=== PATIENT | male | born 1990 | race Caucasian/White ===

== ENCOUNTER 2016-12-16 23:05 | Emergency (ER) | payer MEDICAID ==
[2016-12-16 23:11] VITALS: RESP 16; TEMP 98.2
--- NOTE | 2016-12-16 23:15 | EDPHY ---
H & P Stated Complaint: multiple complaints/Menjivar, dizzy, congested, "low blood count last year" HPI/ROS: HPI CHIEF COMPLAINT: Headache, lightheadedness "I think I am having a Migraine" HISTORY OF PRESENT ILLNESS: This patient very pleasant 18-year-old male, significant past medical history for migraine headaches. Patient presents to the emergency room by private vehicle as he drove here. He states around 10:00 p.m. was going to lay down to go to sleep felt lightheaded and an sudden in onset increase in pressure in his head. He then developed a bitemporal headache. Sudden in onset, atypical from previous headaches. Denies double vision, does endorse nausea. No ringing in his ears. No focal weakness numbness or tingling. No neck pain. He tells me he has a history of migraines that are somewhat different from this and has not had one in a while. He states prior to arrival he took a few ibuprofen is feeling much better he tells me his current headache is 1/10. Denies chest pain or shortness of breath. Denies room spinning sensation. Patient tells me approximately a year ago this primary care doctor was noted that his white count is slightly low and his platelets were at 126,000 was told fever developed a headache that he should be evaluated given that he has thrombocytopenia. Decided come into the emergency room tonight to get his CBC drawn he is requesting to check a CBC and platelet count. Patient also tells me that he has been vigorously working out as he has a history lumbar fusion and has been recovering from this. Tells me he has been swimming extensively sometimes doing to work outs per day. He did work out this morning and felt fine. He states he may be dehydrated contributing to his lightheadedness. Past Medical History: Migraine headaches Past Surgical History: L5-S1 lumbar fusion Social History: Smokes tobacco daily, denies alcohol or drugs Family History: noncontributory ROS REVIEW OF SYSTEMS: A comprehensive 10 point review of systems is otherwise negative aside from elements mentioned in the history of present illness. Exam Constitutional Appears well, Non toxic, no meningeal, triage nursing summary reviewed, vital signs reviewed, awake/alert. Eyes normal conjunctivae and sclera, EOMI, PERRLA. HENT normal inspection, atraumatic, moist mucus membranes, no epistaxis, neck supple/ no meningismus, no raccoon eyes. Respiratory clear to auscultation bilaterally, normal breath sounds, no respiratory distress, no wheezing. Cardiovascular rate normal, regular rhythm, no murmur, no edema, distal pulses normal. Gastrointestinal soft, non-tender, no rebound, no guarding, normal bowel sounds, no distension, no pulsatile mass. Genitourinary no CVA tenderness. Musculoskeletal no midline vertebral tenderness, full range of motion, no calf swelling, no tenderness of extremities, no meningismus, good pulses, neurovascularly intact. Skin pink, warm, & dry, no rash, skin atraumatic. Neurologic Neck supple, awake, alert and oriented x 3, AAOx3, moves all 4 extremities equally, motor intact, sensory intact, CN II-XII intact, normal cerebellar, normal vision, normal speech. Psychiatric normal mood/affect. Heme/Lymph/Immune no lymphadenopathy. Differential Diagnosis: Includes but is not limited to in a particular order migraine headache, tension headache, subarachnoid bleed, aneurysmal bleed, dehydration, rhabdo Medical Decision Making: This patient had an IV established will check basic blood work including CBC, BMP, CK, be hydrated gently with normal saline, this time he appears well nontoxic his neurological exam is unremarkable, may need to perform LP or spinal tap to rule out subarachnoid hemorrhage if CT scan is negative as patient quickly presented to the emergency room after sudden onset of pressure type headache with bitemporal pain. Not thunderclap. He is agree for imaging of his head and CT scan without contrast. Current headache is 1/ 10. will monitor him closely at this time he appears well he has no meningeal signs. Re-evaluation: CT scan of the head without IV contrast. The results of the study are negative for acute abnormality specifically no evidence of bleed. The study was read by Dr. Peraza I viewed the images myself on the PACS system. 1236: Patient is resting comfortably here, I did discuss at length about sudden-onset headache rushing pressure sensation and that to fully rule out a subarachnoid bleed recommend lumbar puncture. The patient is agreeable with this plan it is noted his neurological exam is unremarkable here his CT scan of his head does not show anything acute. After great discussion with the patient and going over the risk versus benefit of lumbar puncture the patient has agreed to this procedure. He does understand that the procedures not done without risk including bleeding, worsening headache, infection, nerve injury or spinal tap post headache need for blood patch. I did explain obviously do everything to mitigate these risks the procedures done sterilely he understands. 1238: blood work has been reviewed. Platelets are 135,000. He is not on any anticoagulation. His platelet count is higher than his previous platelet count his CBC white count is higher than his previous CBC. Here in the emergency room he appears well nontoxic no fever no meningeal signs. Unlikely to have subarachnoid bleed, however given rushing and pressure sensation of his head and headache that is somewhat atypical from his previous migraines he is agree for spinal tap to rule out bleed. 1250: Procedure: Lumbar puncture. Indication: Headache, rule out subarachnoid After verbal informed consent and written consent from patient explaining the risks including infection, bleeding, and neurologic damage, worsening headache, post lp headache, Worsening heading and need for Blood Patch, a lumbar puncture was performed after the patient was prepped and draped in the usual fashion. The back was anesthetized with 1% lidocaine. Approximately 4 cc of clear fluid was obtained. Opening pressure was not obtained. There were no complications. The procedure was performed by myself. 0140: patient is resting comfortably at this time lying flat. No worsening headache. Does not have any back pain. Neurological exam remains unremarkable. CSF studies have been reviewed this time initial red blood cell count was 20 however on tube 4 cleared to 0, 0 whites 0 reds. No indication this patient is having meningitis or subarachnoid bleed 0311: patient ambulated well throughout the emergency room he remained stable nontoxic-appearing unremarkable neurological exam is headache is resolved. His CT scan and CSF studies have been reviewed. I did give him strict return precautions he understands return emergency room if develops worsening headache , fever, vomiting has severe low back pain. He understands this. Source: Patient - Personal History Current Tetanus/Diphtheria Vaccine: Yes Current Tetanus Diphtheria and Acellular Pertussis (TDAP): Yes - Medical/Surgical History Hx Asthma: No Hx Chronic Respiratory Disease: No Hx Diabetes: No Hx Cardiac Disease: No Hx Renal Disease: No Hx Cirrhosis: No Hx Alcoholism: No Hx HIV/AIDS: No Hx Splenectomy or Spleen Trauma: No Other PMH: L1-S5 fusion - Social History Smoking Status: Current every day smoker Constitutional: Initial Vital Signs Temperature (C) 36.8 C 12/16/16 23:09 Heart Rate 97 12/16/16 23:09 Respiratory Rate 16 12/16/16 23:09 Blood Pressure 135/72 H 12/16/16 23:09 O2 Sat (%) 95 12/16/16 23:09 O2 Delivery Mode Room Air Allergies/Adverse Reactions: No Known Allergies Allergy (Unverified 12/16/16 23:08) Home Medications: Medication Instructions Recorded KLONOPIN 12/16/16 Medical Decision Making - Data Points Laboratory Results: Laboratory Results 12/16/16 23:35 12/16/16 23:35 12/17/16 12/17/16 12/17/16 01:00 01:00 01:00 WBC RBC Hgb Hct MCV MCH MCHC RDW Plt Count MPV Neut % (Auto) Lymph % (Auto) [place] % (Auto) Eos % (Auto) Baso % (Auto) Nucleat RBC Rel Count Absolute Neuts (auto) Absolute Lymphs (auto) Absolute Monos (auto) Absolute Eos (auto) Absolute Basos (auto) Absolute Nucleated RBC Immature Gran % Immature Gran # Sodium Potassium Chloride Carbon Dioxide Anion Gap BUN Creatinine Estimated GFR Glucose Calcium Creatine Kinase CK-MB (CK-2) Fraction CK-MB (CK-2) % Creatine Kinase Interp CSF Tube Number 4 1 CSF Appearance CLEAR CLEAR (CLEAR) (CLEAR) CSF Color COLORLESS COLORLESS (COLORLESS) (COLORLESS) CSF Supernatant COLORLESS COLORLESS (COLORLESS) (COLORLESS) CSF WBC 0 /mm3 /mm3 0 /mm3 /mm3 (0-5) (0-5) CSF RBC 0 /mm3 /mm3 20 /mm3 H /mm3 (0-0) (0-0) CSF Glucose 57 mg/dL mg/dL (50-75) CSF Total Protein 35 mg/dL mg/dL (12-60) HSV Source Description Pending HSV I DNA PCR Pending HSV II DNA PCR Pending 12/16/16 12/16/16 23:35 23:35 WBC 7.98 10^3/uL 10^3/uL (3.80-9.50) RBC 4.98 10^6/uL 10^6/uL (4.40-6.38) Hgb 15.7 g/dL g/dL (13.7-17.5) Hct 46.2 % % (40.0-51.0) MCV 92.8 fL fL (81.5-99.8) MCH 31.5 pg pg (27.9-34.1) MCHC 34.0 g/dL g/dL (32.4-36.7) RDW 12.5 % % (11.5-15.2) Plt Count 135 10^3/uL L 10^3/uL (150-400) MPV 10.9 fL fL (8.7-11.7) Neut % (Auto) 61.6 % % (39.3-74.2) Lymph % (Auto) 25.3 % % (15.0-45.0) [place] % (Auto) 10.4 % % (4.5-13.0) Eos % (Auto) 2.1 % % (0.6-7.6) Baso % (Auto) 0.5 % % (0.3-1.7) Nucleat RBC Rel Count 0.0 % % (0.0-0.2) Absolute Neuts (auto) 4.91 10^3/uL 10^3/uL (1.70-6.50) Absolute Lymphs (auto) 2.02 10^3/uL 10^3/uL (1.00-3.00) Absolute Monos (auto) 0.83 10^3/uL H 10^3/uL (0.30-0.80) Absolute Eos (auto) 0.17 10^3/uL 10^3/uL (0.03-0.40) Absolute Basos (auto) 0.04 10^3/uL 10^3/uL (0.02-0.10) Absolute Nucleated RBC 0.00 10^3/uL 10^3/uL (0-0.01) Immature Gran % 0.1 % % (0.0-1.1) Immature Gran # 0.01 10^3/uL 10^3/uL (0.00-0.10) Sodium 141 mEq/L mEq/L (134-144) Potassium 4.0 mEq/L mEq/L (3.5-5.2) Chloride 104 mEq/L mEq/L (97-110) Carbon Dioxide 27 mEq/l mEq/l (22-31) Anion Gap 10 mEq/L mEq/L (8-16) BUN 21 mg/dL mg/dL (7-23) Creatinine 0.9 mg/dL mg/dL (0.7-1.3) Estimated GFR > 60 Glucose 96 mg/dL mg/dL (70-100) Calcium 9.5 mg/dL mg/dL (8.5-10.4) Creatine Kinase 310 IU/L H IU/L (0-224) CK-MB (CK-2) Fraction 1.82 ng/mL ng/mL (0-3.19) CK-MB (CK-2) % 0.6 % % (0.0-4.0) Creatine Kinase Interp NEGATIVE (NEGATIVE) CSF Tube Number CSF Appearance CSF Color CSF Supernatant CSF WBC CSF RBC CSF Glucose CSF Total Protein HSV Source Description HSV I DNA PCR HSV II DNA PCR Microbiology Results: MICROBIOLOGY 12/17/16 01:00 Cerebral Spinal Fluid Gram Stain - Final Medications Given: Discontinued Medications Acetaminophen (Tylenol) 1,000 mg PO EDNOW ONE Stop: 12/17/16 02:04 Last Admin: 12/17/16 02:09 Dose: 1,000 mg Sodium Chloride (Ns) 1,000 mls @ 0 mls/hr IV ONCE ONE PRN Reason: Wide Open Stop: 12/16/16 23:23 Last Admin: 12/16/16 23:38 Dose: 1,000 mls Sodium Chloride (Ns) 1,000 mls @ 0 mls/hr IV ONCE ONE PRN Reason: Wide Open Stop: 12/17/16 01:10 Last Admin: 12/17/16 01:00 Dose: 1,000 mls Departure - Departure Disposition: Home, Routine, Self-Care Clinical Impression: Headache Qualifiers: Headache type: unspecified Headache chronicity pattern: acute headache Intractability: not intractable Qualified Code(s): R51 - Headache Condition: Good Instructions: Acute Headache (ED) Additional Instructions: 1. Drink lots of fluids stay well-hydrated 2. return emergency room if you have worsening headache, fever, vomiting or any questions or concerns 3. Stay in a low stimulus environment for the next 24 hours no loud noises or bright lights. Referrals: FINE,CORNELIO [Other] - As per Instructions
[2016-12-16] MEDS ORDERED: NS 1,000 ML IV ONE (23:22)
[2016-12-16 23:42] LABS: % IMMATURE GRANULYOCYTES 0.1 % (0.0-1.1); ABSOLUTE IMMATURE GRANULOCYTES 0.01 10^3/uL (0.00-0.10); ADD DIFF? NO; ADD MORPH? NO; ADD SCAN? NO; ATYPICAL LYMPHOCYTE FLAG 10 (0-99); FRAGMENT RBC FLAG 0 (0-99); HEMATOCRIT 46.2 % (40.0-51.0); HEMOGLOBIN 15.7 g/dL (13.7-17.5); LEFT SHIFT FLG 0 (0-99); LIPEMIA HEMOLYSIS FLAG 90 (0-99); MEAN CELL HEMOGLOBIN 31.5 pg (27.9-34.1); MEAN CELL VOLUME 92.8 fL (81.5-99.8); MEAN PLATELET VOLUME 10.9 fL (8.7-11.7); PLATELET CLUMPS FLAG 10 (0-99); PLATELET COUNT 135 10^3/uL (150-400); RED BLOOD CELL COUNT 4.98 10^6/uL (4.40-6.38); RED CELL DISTRIBUTION WIDTH 12.5 % (11.5-15.2)
[2016-12-16 23:52] LABS: ANION GAP 10 mEq/L (8-16); CALCIUM 9.5 mg/dL (8.5-10.4); CARBON DIOXIDE 27 mEq/l (22-31); CHLORIDE 104 mEq/L (97-110); CREATININE 0.9 mg/dL (0.7-1.3); GLOMERULAR FILTRATION RATE > 60; GLUCOSE 96 mg/dL (70-100); SODIUM 141 mEq/L (134-144)
[2016-12-17 00:24] LABS: CK-MB INTERPRETATION NEGATIVE (NEGATIVE); CREATINE KINASE-MB FRACTION 1.82 ng/mL (0-3.19)
[2016-12-17] MEDS ORDERED: NS 1,000 ML IV ONE (01:09)
[2016-12-17 01:20] LABS: PROTEIN, CSF 35 mg/dL (12-60)
[2016-12-17 01:34] LABS: CSF APPEARANCE CLEAR (CLEAR); CSF COLOR COLORLESS (COLORLESS); CSF SUPERNATANT COLORLESS (COLORLESS); WBC, CSF 0 /mm3 (0-5)
[2016-12-17] MEDS ORDERED: ACETAMINOPHEN 500 MG TAB PO ONE (02:03)
[2016-12-17 03:31] VITALS: BP 103/60; PULSE 79; O2SAT 97
[2016-12-19 07:38] LABS: MISCELLANEOUS TEST See Comments
== END 2016-12-17 03:31 | disposition home or self-care (01) ==
PROC: 009U3ZX Drainage of Spinal Canal, Percutaneous Approach, Diagnostic (ICD-10-PCS; principal; 2016-12-16)
DX: R51 Headache (principal); F17.200 Nicotine dependence, unspecified, uncomplicated; Z98.1 Arthrodesis status
CPT/HCPCS: 87529-90

== ENCOUNTER 2016-12-18 16:16 | Emergency (ER) | payer MEDICAID ==
[2016-12-18 16:22] VITALS: RESP 16
--- NOTE | 2016-12-18 16:32 | EDPHY ---
H & P Time Seen by Provider: 12/18/16 16:32 HPI/ROS: CHIEF COMPLAINT: Headache HISTORY OF PRESENT ILLNESS: Patient was seen in the emergency department on by Dr. Zurita for headache and being lightheaded. He had a negative workup including head CT and lumbar puncture and felt better for 24 hours but then today while working had recurrent left-sided headache at 2:00 p.m. This was associated with feeling lightheaded disoriented with a bloody nose on the right. He also had slurred speech and felt like he" lost touch" and had numbness in his right hand. Symptoms lasted a hour and half for 2 hours and now or better except he still has a left-sided headache. Does not radiate. Not associated with neck pain. REVIEW OF SYSTEMS: Eye: no change in vision ENT: no sore throat Cardiac: no chest pain or syncope Pulmonary: no cough or SOB Abdomen: no vomiting, diarrhea, abdominal pain Musculoskeletal: no back pain Skin: no rash Neuro: HPI Constitutional: no fever : no urinary symptoms A comprehensive 10 point review of systems is otherwise negative aside from elements mentioned in the history of present illness. PAST MEDICAL HISTORY: Migraine headaches and L5-S1 lumbar fusion Social history: Tobacco smoker, no family history of venous thromboembolism or intracranial aneurysm. General Appearance: Alert and conversant, cooperative. Eyes: No scleral icterus. Extraocular motion intact. ENT, Mouth: Normal mucous membranes. Normal tympanic membranes and no trismus and pharynx appears normal. Respiratory: Normal respiratory effort, breath sounds equal, lungs are clear to auscultation. Cardiovascular: Regular rate and rhythm. Gastrointestinal: Abdomen is soft and non tender. Neurological: Alert and oriented x3. Normally conversant. Face symmetric, normal movement and sensation in all extremities. Normal [id number] bilaterally and no pronator drift. Skin: Warm and dry, no rashes. Musculoskeletal: No peripheral edema and no joint swelling. Normal range of motion of his neck. Psychiatric: Not agitated. Emergency Department course/MDM: Patient does not have a positional component to his headache. He is able the sit up and stand and in fact chooses to be sitting during the interview. I think that lumbar puncture related headache is unlikely. Plan for MRI brain and neck angiography, with stroke symptoms, treatment for migraine with Toradol dexamethasone and Reglan. 1920: CT angiography normal per Dr. Sibley. Patient examined and feels back to normal and his headache is resolved. Think this is likely migraine headache and unlikely to be stroke or dissection. Smoking Status: Current every day smoker Constitutional: Initial Vital Signs Temperature (C) 36.9 C 12/18/16 16:20 Heart Rate 75 12/18/16 16:20 Respiratory Rate 16 12/18/16 16:20 Blood Pressure 144/90 H 12/18/16 16:20 O2 Sat (%) 98 12/18/16 16:20 O2 Delivery Mode Room Air Allergies/Adverse Reactions: No Known Allergies Allergy (Unverified 12/16/16 23:08) Home Medications: Medication Instructions Recorded KLONOPIN 12/16/16 Medical Decision Making - Diagnostics Imaging: MRI brain negative per Aquilino at 6:13 p.m.. - Data Points Laboratory Results: Laboratory Results 12/18/16 16:50 12/18/16 16:50 12/18/16 12/18/16 16:50 16:50 WBC 7.93 10^3/uL 10^3/uL (3.80-9.50) RBC 5.03 10^6/uL 10^6/uL (4.40-6.38) Hgb 16.0 g/dL g/dL (13.7-17.5) Hct 46.0 % % (40.0-51.0) MCV 91.5 fL fL (81.5-99.8) MCH 31.8 pg pg (27.9-34.1) MCHC 34.8 g/dL g/dL (32.4-36.7) RDW 12.3 % % (11.5-15.2) Plt Count 136 10^3/uL L 10^3/uL (150-400) MPV 10.8 fL fL (8.7-11.7) Neut % (Auto) 63.3 % % (39.3-74.2) Lymph % (Auto) 23.8 % % (15.0-45.0) [place] % (Auto) 10.1 % % (4.5-13.0) Eos % (Auto) 2.0 % % (0.6-7.6) Baso % (Auto) 0.5 % % (0.3-1.7) Nucleat RBC Rel Count 0.0 % % (0.0-0.2) Absolute Neuts (auto) 5.02 10^3/uL 10^3/uL (1.70-6.50) Absolute Lymphs (auto) 1.89 10^3/uL 10^3/uL (1.00-3.00) Absolute Monos (auto) 0.80 10^3/uL 10^3/uL (0.30-0.80) Absolute Eos (auto) 0.16 10^3/uL 10^3/uL (0.03-0.40) Absolute Basos (auto) 0.04 10^3/uL 10^3/uL (0.02-0.10) Absolute Nucleated RBC 0.00 10^3/uL 10^3/uL (0-0.01) Immature Gran % 0.3 % % (0.0-1.1) Immature Gran # 0.02 10^3/uL 10^3/uL (0.00-0.10) Sodium 140 mEq/L mEq/L (134-144) Potassium 4.2 mEq/L mEq/L (3.5-5.2) Chloride 103 mEq/L mEq/L (97-110) Carbon Dioxide 25 mEq/l mEq/l (22-31) Anion Gap 12 mEq/L mEq/L (8-16) BUN 18 mg/dL mg/dL (7-23) Creatinine 0.8 mg/dL mg/dL (0.7-1.3) Estimated GFR > 60 Glucose 91 mg/dL mg/dL (70-100) Calcium 9.8 mg/dL mg/dL (8.5-10.4) Medications Given: Discontinued Medications Dexamethasone (Decadron Injection) 10 mg IVP EDNOW ONE Stop: 12/18/16 16:44 Last Admin: 12/18/16 17:01 Dose: 10 mg Sodium Chloride (Ns) 1,000 mls @ 0 mls/hr IV ONCE ONE PRN Reason: Wide Open Stop: 12/18/16 16:44 Last Admin: 12/18/16 16:50 Dose: 1,000 mls Ketorolac Tromethamine (Toradol) 30 mg IVP EDNOW ONE Stop: 12/18/16 16:44 Last Admin: 12/18/16 17:01 Dose: 30 mg Metoclopramide HCl (Reglan Injection) 10 mg IVP EDNOW ONE Stop: 12/18/16 16:44 Last Admin: 12/18/16 17:01 Dose: 10 mg Departure - Departure Disposition: Home, Routine, Self-Care Clinical Impression: Migraine headache Qualifiers: Migraine type: unspecified Status migrainosus presence: without status migrainosus Intractability: not intractable Qualified Code(s): G43.909 - Migraine, unspecified, not intractable, without status migrainosus Condition: Good Instructions: Migraine Headache (ED) Referrals: CORNELIO BARROW [Other] - As per Instructions Deep Brunson MD [Medical Doctor] - As per Instructions (neurology referral)
[2016-12-18] MEDS ORDERED: DEXAMETHASONE 10 MG/ML VIAL IVP ONE (16:43)
[2016-12-18] MEDS ORDERED: NS 1,000 ML IV ONE (16:43)
[2016-12-18] MEDS ORDERED: METOCLOPRAMIDE 10 MG/2 ML VIAL IVP ONE (16:43)
[2016-12-18] MEDS ORDERED: KETOROLAC 30 MG/1 ML SDV IVP ONE (16:43)
[2016-12-18 17:05] LABS: % IMMATURE GRANULYOCYTES 0.3 % (0.0-1.1); ABSOLUTE IMMATURE GRANULOCYTES 0.02 10^3/uL (0.00-0.10); ADD DIFF? NO; ADD MORPH? NO; ADD SCAN? NO; ATYPICAL LYMPHOCYTE FLAG 10 (0-99); FRAGMENT RBC FLAG 0 (0-99); LEFT SHIFT FLG 0 (0-99); LIPEMIA HEMOLYSIS FLAG 90 (0-99); MEAN CELL HEMOGLOBIN 31.8 pg (27.9-34.1); MEAN CELL HEMOGLOBIN CONCENTR. 34.8 g/dL (32.4-36.7); MEAN CELL VOLUME 91.5 fL (81.5-99.8); MEAN PLATELET VOLUME 10.8 fL (8.7-11.7); PLATELET CLUMPS FLAG 10 (0-99); PLATELET COUNT 136 10^3/uL (150-400); RED BLOOD CELL COUNT 5.03 10^6/uL (4.40-6.38); RED CELL DISTRIBUTION WIDTH 12.3 % (11.5-15.2)
[2016-12-18 17:25] LABS: ANION GAP 12 mEq/L (8-16); CALCIUM 9.8 mg/dL (8.5-10.4); CARBON DIOXIDE 25 mEq/l (22-31); CHLORIDE 103 mEq/L (97-110); CREATININE 0.8 mg/dL (0.7-1.3); GLOMERULAR FILTRATION RATE > 60; GLUCOSE 91 mg/dL (70-100); POTASSIUM 4.2 mEq/L (3.5-5.2); SODIUM 140 mEq/L (134-144)
[2016-12-18] MEDS ORDERED: IOPAMIDOL (ISOVUE-370) 150 ML BTL IV ONE (17:32)
[2016-12-18 19:34] VITALS: BP 123/71; PULSE 63; TEMP 98.6; O2SAT 96
== END 2016-12-18 19:34 | disposition home or self-care (01) ==
DX: G43.909 Migraine, unspecified, not intractable, without status migrainosus (principal); F17.200 Nicotine dependence, unspecified, uncomplicated
CPT/HCPCS: 96374; J1885; J2765; Q9967

== ENCOUNTER 2017-03-05 19:18 | Emergency (ER) | payer MEDICAID ==
[2017-03-05 19:25] VITALS: RESP 16; O2SAT 98
--- NOTE | 2017-03-05 20:15 | CPEKG ---
Heart Rate: 66 RR Interval: 909 P-R Interval: 148 QRSD Interval: 92 QT Interval: 408 QTC Interval: 428 P Isabella: 36 QRS Isabella: 61 T Wave Isabella: 55 EKG Severity - NORMAL ECG - EKG Impression: SINUS RHYTHM EKG Impression: ST ELEV, PROBABLE NORMAL EARLY REPOL PATTERN Electronically Signed By: Moise Watson 05-Mar-2017 20:35:38
[2017-03-05 20:28] LABS: % IMMATURE GRANULYOCYTES 0.4 % (0.0-1.1); ABSOLUTE IMMATURE GRANULOCYTES 0.03 10^3/uL (0.00-0.10); ADD DIFF? NO; ADD MORPH? NO; ADD SCAN? NO; ATYPICAL LYMPHOCYTE FLAG 20 (0-99); FRAGMENT RBC FLAG 0 (0-99); HEMATOCRIT 45.1 % (40.0-51.0); HEMOGLOBIN 15.4 g/dL (13.7-17.5); LEFT SHIFT FLG 0 (0-99); LIPEMIA HEMOLYSIS FLAG 90 (0-99); MEAN CELL HEMOGLOBIN 31.4 pg (27.9-34.1); MEAN CELL HEMOGLOBIN CONCENTR. 34.1 g/dL (32.4-36.7); MEAN PLATELET VOLUME 10.7 fL (8.7-11.7); PLATELET CLUMPS FLAG 0 (0-99); PLATELET COUNT 135 10^3/uL (150-400)
[2017-03-05 20:46] LABS: ANION GAP 9 mEq/L (8-16); CALCIUM 9.3 mg/dL (8.5-10.4); CARBON DIOXIDE 26 mEq/l (22-31); CHLORIDE 105 mEq/L (97-110); CREATININE 0.9 mg/dL (0.7-1.3); ETHANOL SERUM < 10 mg/dL (0-10); GLOMERULAR FILTRATION RATE > 60; GLUCOSE 80 mg/dL (70-100); POTASSIUM 4.3 mEq/L (3.5-5.2); SODIUM 140 mEq/L (134-144)
--- NOTE | 2017-03-05 21:04 | EDPHY ---
H & P Stated Complaint: poisoned? - Personal History Current Tetanus/Diphtheria Vaccine: Yes Current Tetanus Diphtheria and Acellular Pertussis (TDAP): Yes - Medical/Surgical History Hx Asthma: No Hx Chronic Respiratory Disease: No Hx Diabetes: No Hx Cardiac Disease: No Hx Renal Disease: No Hx Cirrhosis: No Hx Alcoholism: No Hx HIV/AIDS: No Hx Splenectomy or Spleen Trauma: No Other PMH: L1-S5 fusion - Social History Smoking Status: Current every day smoker Time Seen by Provider: 03/05/17 19:41 HPI/ROS: Chief complaint: Fatigue, concerned he may have been poisoned History of present illness: This is a 18-year-old male presents to the emergency department concerned he may have been poisoned. Patient states 3 days ago he saw a neon green substance on his work desk at home. He did not ingest it or touch it directly. He did clean it up. However he is concerned because since then he has felt fatigued. He has had slight headaches, sore throat and generalized feeling of malaise. He denies other potential precipitating factors. He denies alleviating or aggravating factors. He denies other associated signs or symptoms including no fevers or no other cold symptoms, no chest pain, no shortness of breath, no abdominal pain, no nausea, vomiting or diarrhea, no paresthesias, no weakness or paralysis, no bowel or bladder dysfunction. Review of systems: A 10 point review of systems was obtained and other than described above was negative (Steven Chacon) - Physical Exam Exam: General Appearance: Alert, non toxic. Eyes: Pupils equal and round no pallor or injection. ENT, Mouth: Tympanic membranes, external auditory canals, external ears and surrounding soft tissue including over the mastoids are unremarkable. Nasopharynx is not injected. There is no rhinorrhea. Oropharynx is not injected. There is no edema. There is no exudate. There is no asymmetry. The uvula is midline. No elevation of the tongue. There is no hoarseness, no drooling, no trismus, no stridor. Respiratory: There are no retractions, lungs are clear to auscultation. Cardiovascular: Regular rate and rhythm. Gastrointestinal: Abdomen is soft and non tender, no masses, bowel sounds normal. Neurological: Alert and oriented x4. Cranial nerves 2-12 grossly intact. Strength and sensation intact and symmetrical. No meningismus. Patient ambulating without difficulty. Skin: Warm and dry, no rashes. Musculoskeletal: Neck is supple non tender. Extremities are symmetrical, full range of motion. Psychiatric: Patient is oriented X 3, there is no agitation. (Steven Chacon) Constitutional: Initial Vital Signs Temperature (C) 36.9 C 03/05/17 19:23 Heart Rate 78 03/05/17 19:23 Respiratory Rate 16 03/05/17 19:23 Blood Pressure 140/79 H 03/05/17 19:23 O2 Sat (%) 98 03/05/17 19:23 O2 Delivery Mode Room Air Allergies/Adverse Reactions: No Known Allergies Allergy (Unverified 03/05/17 19:22) Medical Decision Making - Diagnostics EKG Interpretation: 12-lead EKG interpreted by me; official reading is in trace master. My interpretation is sinus rhythm rate 66 with early repolarization. (Moise Watson) ED Course/Re-evaluation: Patient is discussed with my secondary supervising physician Dr. Moise Watson. Patient presents to the emergency department with generalized complaints, concerned he might have had a toxic exposure. On presentation he is nontoxic. Vital signs are stable. Physical exam is benign. Blood studies are unremarkable. At this time my suspicion for serious underlying pathology is low. I have discussed with him it is not clear as to the exact cause of his symptoms. I do believe he is appropriate for outpatient management. He is discharged home. He is asked to follow up with the primary care doctor for recheck. Return precautions are given. Patient voiced understanding and agreement with plan. (Steven Chacon) Differential Diagnosis: Included but not limited to toxic exposure, substance abuse, hypovolemia, cardiac disturbances, infectious pathology (Steven Chacon) - Data Points Laboratory Results: Laboratory Results 03/05/17 20:15 03/05/17 20:15 03/05/17 03/05/17 03/05/17 Unknown 20:40 20:15 WBC RBC Hgb Hct MCV MCH MCHC RDW Plt Count MPV Neut % (Auto) Lymph % (Auto) [place] % (Auto) Eos % (Auto) Baso % (Auto) Nucleat RBC Rel Count Absolute Neuts (auto) Absolute Lymphs (auto) Absolute Monos (auto) Absolute Eos (auto) Absolute Basos (auto) Absolute Nucleated RBC Immature Gran % Immature Gran # Sodium 140 mEq/L mEq/L (134-144) Potassium 4.3 mEq/L mEq/L (3.5-5.2) Chloride 105 mEq/L mEq/L (97-110) Carbon Dioxide 26 mEq/l mEq/l (22-31) Anion Gap 9 mEq/L mEq/L (8-16) BUN 28 mg/dL H mg/dL (7-23) Creatinine 0.9 mg/dL mg/dL (0.7-1.3) Estimated GFR > 60 Glucose 80 mg/dL mg/dL (70-100) Calcium 9.3 mg/dL mg/dL (8.5-10.4) Urine Opiates Screen NEGATIVE (NEGATIVE) Urine Barbiturates NEGATIVE (NEGATIVE) Ur Phencyclidine Scrn NEGATIVE (NEGATIVE) Ur Amphetamine Screen NEGATIVE (NEGATIVE) U Benzodiazepines Scrn NEGATIVE (NEGATIVE) Urine Cocaine Screen NEGATIVE (NEGATIVE) U Marijuana (THC) Screen NON-NEGATIVE H (NEGATIVE) Ethyl Alcohol < 10 mg/dL mg/dL (0-10) Group A Strep Screen Group A Strep DNA Pending 03/05/17 03/05/17 20:15 19:50 WBC 7.73 10^3/uL 10^3/uL (3.80-9.50) RBC 4.90 10^6/uL 10^6/uL (4.40-6.38) Hgb 15.4 g/dL g/dL (13.7-17.5) Hct 45.1 % % (40.0-51.0) MCV 92.0 fL fL (81.5-99.8) MCH 31.4 pg pg (27.9-34.1) MCHC 34.1 g/dL g/dL (32.4-36.7) RDW 12.0 % % (11.5-15.2) Plt Count 135 10^3/uL L 10^3/uL (150-400) MPV 10.7 fL fL (8.7-11.7) Neut % (Auto) 55.6 % % (39.3-74.2) Lymph % (Auto) 31.0 % % (15.0-45.0) [place] % (Auto) 9.6 % % (4.5-13.0) Eos % (Auto) 3.0 % % (0.6-7.6) Baso % (Auto) 0.4 % % (0.3-1.7) Nucleat RBC Rel Count 0.0 % % (0.0-0.2) Absolute Neuts (auto) 4.30 10^3/uL 10^3/uL (1.70-6.50) Absolute Lymphs (auto) 2.40 10^3/uL 10^3/uL (1.00-3.00) Absolute Monos (auto) 0.74 10^3/uL 10^3/uL (0.30-0.80) Absolute Eos (auto) 0.23 10^3/uL 10^3/uL (0.03-0.40) Absolute Basos (auto) 0.03 10^3/uL 10^3/uL (0.02-0.10) Absolute Nucleated RBC 0.00 10^3/uL 10^3/uL (0-0.01) Immature Gran % 0.4 % % (0.0-1.1) Immature Gran # 0.03 10^3/uL 10^3/uL (0.00-0.10) Sodium Potassium Chloride Carbon Dioxide Anion Gap BUN Creatinine Estimated GFR Glucose Calcium Urine Opiates Screen Urine Barbiturates Ur Phencyclidine Scrn Ur Amphetamine Screen U Benzodiazepines Scrn Urine Cocaine Screen U Marijuana (THC) Screen Ethyl Alcohol Group A Strep Screen NEGATIVE (NEGATIVE) Group A Strep DNA Departure - Departure Disposition: Home, Routine, Self-Care Clinical Impression: Malaise Condition: Good Instructions: Fatigue (ED) Additional Instructions: Follow-up with a primary care doctor for recheck If symptoms worsen or new symptoms develop return to the emergency room for recheck Referrals: NONE *PRIMARY CARE P,. [Primary Care Provider] - As per Instructions [facility],. [Clinic] - As per Instructions
[2017-03-05 21:07] VITALS: BP 136/70; PULSE 61; TEMP 97.9
== END 2017-03-05 21:46 | disposition home or self-care (01) ==
DX: R53.81 Other malaise (principal); F17.200 Nicotine dependence, unspecified, uncomplicated
CPT/HCPCS: 80305; G0480

== ENCOUNTER 2017-03-14 07:08 | Emergency (ER) | payer MEDICAID ==
[2017-03-14 07:15] VITALS: BP 136/89; PULSE 76; RESP 16; TEMP 97.5; O2SAT 98
--- NOTE | 2017-03-14 07:38 | EDPHY ---
H & P Stated Complaint: Pt requests mental health eval--no SI or HI--'BAD MEMORIES KEEP RETURNING" Time Seen by Provider: 03/14/17 07:16 HPI/ROS: CHIEF COMPLAINT: Requesting mental health evaluation HISTORY OF PRESENT ILLNESS: The patient presents to the ED requesting a mental health evaluation. The patient states he has been struggling with a variety of symptoms surrounding his identity and ability to concentrate. The patient states the symptoms have been going on for some time. He has a history of depression. The patient has been on medications for this disease in the past. He is currently not on medications. The patient has no history of bipolar or schizophrenia per his report. The patient denies any suicidal or homicidal ideation. The patient has been seen in the emergency department a number of times this year for issues surrounding a headache. He has had a fairly comprehensive evaluation of that symptom including lumbar puncture, CT scans, angiograms and MRIs all of which have been normal. The patient denies any acute medical complaints such as fever, cough, congestion or pain. REVIEW OF SYSTEMS: A comprehensive 10 point review of systems is otherwise negative aside from elements mentioned in the history of present illness. Source: Patient Exam Limitations: No limitations - Personal History Current Tetanus/Diphtheria Vaccine: Unsure Current Tetanus Diphtheria and Acellular Pertussis (TDAP): Unsure - Medical/Surgical History Hx Asthma: No Hx Chronic Respiratory Disease: No Hx Diabetes: No Hx Cardiac Disease: No Hx Renal Disease: No Hx Cirrhosis: No Hx Alcoholism: No Hx HIV/AIDS: No Hx Splenectomy or Spleen Trauma: No Other PMH: L1-S5 fusion - Social History Smoking Status: Current every day smoker - Physical Exam Exam: General Appearance: Alert, no distress Eyes: Pupils equal and round no pallor or injection ENT, Mouth: Mucous membranes moist Respiratory: There are no retractions, lungs are clear to auscultation Cardiovascular: Regular rate and rhythm Gastrointestinal: Abdomen is soft and nontender, no masses, bowel sounds normal Neurological: A&O, normal motor function, normal sensory exam, normal cranial nerves Skin: Warm and dry, no rashes Musculoskeletal: Neck is supple nontender Extremities: symmetrical, full range of motion Psychiatric: Patient is oriented X 3, there is no agitation, flat affect, denies suicidal ideation, denies homicidal ideation Constitutional: Initial Vital Signs Temperature (C) 36.4 C 03/14/17 07:11 Heart Rate 76 03/14/17 07:11 Respiratory Rate 16 03/14/17 07:11 Blood Pressure 136/89 H 03/14/17 07:11 O2 Sat (%) 98 03/14/17 07:11 O2 Delivery Mode Room Air Allergies/Adverse Reactions: No Known Allergies Allergy (Unverified 03/05/17 19:22) Home Medications: Medication Instructions Recorded NK [No Known Home Meds] 03/14/17 Medical Decision Making ED Course/Re-evaluation: The patient presents to the ED requesting in a referral for psychiatric evaluation. The patient does not meet criteria for 72 hour mental health hold. The patient would very much like to go to the walk-in clinic at [facility]. Patient has been provided this referral information. The patient does contract for safety. The patient has been discharged home with customary aftercare instructions and return precautions. Departure - Departure Disposition: Home, Routine, Self-Care Clinical Impression: Confusion Condition: Good Instructions: Depression (ED) Additional Instructions: 1. Please follow-up with the mental health resources provided in the ED today. 2. [facility] does operate a 18/05 psychiatric crisis unit located at [address] [place] [address]. The telephone number for the 24 hour crisis center is [phone]. 3. Please return to the ED if you are feeling suicidal, having thoughts of harming yourself/others or should you feel unsafe or have worsening symptoms. Referrals: [facility],. [Clinic] - As per Instructions
== END 2017-03-14 07:52 | disposition home or self-care (01) ==
DX: R41.0 Disorientation, unspecified (principal); F17.200 Nicotine dependence, unspecified, uncomplicated

== ENCOUNTER 2017-03-18 15:04 | Inpatient (IN) | payer MEDICAID ==
[2017-03-18 18:52] LABS: % IMMATURE GRANULYOCYTES 0.4 % (0.0-1.1); ABSOLUTE IMMATURE GRANULOCYTES 0.03 10^3/uL (0.00-0.10); ADD DIFF? NO; ADD MORPH? NO; ADD SCAN? NO; ATYPICAL LYMPHOCYTE FLAG 0 (0-99); FRAGMENT RBC FLAG 0 (0-99); HEMATOCRIT 47.7 % (40.0-51.0); HEMOGLOBIN 16.2 g/dL (13.7-17.5); LEFT SHIFT FLG 0 (0-99); LIPEMIA HEMOLYSIS FLAG 90 (0-99); MEAN CELL HEMOGLOBIN 30.8 pg (27.9-34.1); MEAN CELL VOLUME 90.7 fL (81.5-99.8); MEAN PLATELET VOLUME 10.7 fL (8.7-11.7); PLATELET CLUMPS FLAG 0 (0-99); PLATELET COUNT 140 10^3/uL (150-400); RED BLOOD CELL COUNT 5.26 10^6/uL (4.40-6.38); RED CELL DISTRIBUTION WIDTH 11.9 % (11.5-15.2)
[2017-03-18 18:59] LABS: ANION GAP 14 mEq/L (8-16); CALCIUM 9.7 mg/dL (8.5-10.4); CARBON DIOXIDE 25 mEq/l (22-31); CHLORIDE 103 mEq/L (97-110); ETHANOL SERUM < 10 mg/dL (0-10); GLOMERULAR FILTRATION RATE > 60; GLUCOSE 96 mg/dL (70-100); SODIUM 142 mEq/L (134-144)
[2017-03-19] MEDS ORDERED: OLANZapine 5 MG TAB PO ONE (00:01)
--- NOTE | 2017-03-19 00:01 | EDPHY ---
Mental Health General Previous Psychiatric History: depression Smoking Status: Current every day smoker Time Patient Placed on M1 Hold: 23:57 Time Medically Cleared for Psychiatric Evaluation: 20:00 Time of Transfer of Care: 23:[address]:: Jose Course: patient remained stable over course of my shift, no additional interventions, awaiting acceptance to inpatient bed Narrative: CHIEF COMPLAINT: mental health evaluation HISTORY OF PRESENT ILLNESS: 18-year-old male presents emergency department from [facility] sent for medical clearance prior to evaluation. Patient reports a 2-3 month history of difficulty concentrating, and a variety symptoms surrounding his identity. Patient has a history of depression, was weaned off his Wellbutrin and clonazepam 3 months ago by his primary care doctor which is when his symptoms started worsening. Patient denies suicidal ideations, homicidal ideations. He denies auditory or visual hallucinations though when I ask him about this he hands me a packet of research articles on Quantum memory and advance communication techniques. Patient tells me he thinks this is the explanation for his problems. He talks about light switches going on and off in his brain. Patient denies fevers or chills, no physical complaints. REVIEW OF SYSTEMS: A comprehensive 10 point review of systems is otherwise negative aside from elements mentioned in the history of present illness. Physical Exam Gen: Alert and Oriented, NAD HEENT: PERRL, moist mucous membranes NECK: no meningismus CV: regular rate and regular rhythm PULM: CTAB, no wheezes ABDOMEN: soft, non tender to palpation, BS present BACK: No CVA tenderness NEURO: Neurologically grossly intact EXTREMITIES: normal appearing SKIN: no rash or break in skin on exposed skin PSYCH: answers questions appropriately. (Linda Nice) Medical Decision Making: Patient evaluated by mental health, he has been placed on an M1 hold they will seek inpatient psychiatric hospitalization. (Linda Nice) 23:55 care assumed by me from [facility] pending placement. 02:10 patient has been accepted to [address] Black. I have completed the EMTALA (Ronald Garcia) - Objective Vital Signs: Initial Vital Signs Temperature (C) 36.7 C 03/18/17 18:25 Heart Rate 60 03/18/17 18:25 Respiratory Rate 20 03/18/17 18:25 Blood Pressure 149/99 H 03/18/17 18:25 O2 Sat (%) 100 03/18/17 18:25 O2 Delivery Mode Room Air Allergies/Adverse Reactions: No Known Allergies Allergy (Unverified 03/05/17 19:22) Home Medications: Medication Instructions Recorded NK [No Known Home Meds] 03/14/17 Medications Given: Discontinued Medications Olanzapine (Olanzapine) 5 mg PO ONCE ONE Stop: 03/19/17 00:02 Last Admin: 03/19/17 00:15 Dose: 5 mg Laboratory Results: Laboratory Results 03/18/17 18:35 03/18/17 18:35 03/18/17 03/18/17 03/18/17 18:35 18:35 18:35 WBC 8.38 10^3/uL 10^3/uL (3.80-9.50) RBC 5.26 10^6/uL 10^6/uL (4.40-6.38) Hgb 16.2 g/dL g/dL (13.7-17.5) Hct 47.7 % % (40.0-51.0) MCV 90.7 fL fL (81.5-99.8) MCH 30.8 pg pg (27.9-34.1) MCHC 34.0 g/dL g/dL (32.4-36.7) RDW 11.9 % % (11.5-15.2) Plt Count 140 10^3/uL L 10^3/uL (150-400) MPV 10.7 fL fL (8.7-11.7) Neut % (Auto) 61.1 % % (39.3-74.2) Lymph % (Auto) 28.8 % % (15.0-45.0) [place] % (Auto) 6.7 % % (4.5-13.0) Eos % (Auto) 2.6 % % (0.6-7.6) Baso % (Auto) 0.4 % % (0.3-1.7) Nucleat RBC Rel Count 0.0 % % (0.0-0.2) Absolute Neuts (auto) 5.13 10^3/uL 10^3/uL (1.70-6.50) Absolute Lymphs (auto) 2.41 10^3/uL 10^3/uL (1.00-3.00) Absolute Monos (auto) 0.56 10^3/uL 10^3/uL (0.30-0.80) Absolute Eos (auto) 0.22 10^3/uL 10^3/uL (0.03-0.40) Absolute Basos (auto) 0.03 10^3/uL 10^3/uL (0.02-0.10) Absolute Nucleated RBC 0.00 10^3/uL 10^3/uL (0-0.01) Immature Gran % 0.4 % % (0.0-1.1) Immature Gran # 0.03 10^3/uL 10^3/uL (0.00-0.10) Sodium 142 mEq/L mEq/L (134-144) Potassium 4.0 mEq/L mEq/L (3.5-5.2) Chloride 103 mEq/L mEq/L (97-110) Carbon Dioxide 25 mEq/l mEq/l (22-31) Anion Gap 14 mEq/L mEq/L (8-16) BUN 17 mg/dL mg/dL (7-23) Creatinine 1.0 mg/dL mg/dL (0.7-1.3) Estimated GFR > 60 Glucose 96 mg/dL mg/dL (70-100) Calcium 9.7 mg/dL mg/dL (8.5-10.4) Urine Opiates Screen NEGATIVE (NEGATIVE) Urine Barbiturates NEGATIVE (NEGATIVE) Ur Phencyclidine Scrn NEGATIVE (NEGATIVE) Ur Amphetamine Screen NEGATIVE (NEGATIVE) U Benzodiazepines Scrn NEGATIVE (NEGATIVE) Urine Cocaine Screen NEGATIVE (NEGATIVE) U Marijuana (THC) Screen NON-NEGATIVE H (NEGATIVE) Ethyl Alcohol < 10 mg/dL mg/dL (0-10) Departure - Departure Disposition: [facility] IP Clinical Impression: Acute psychosis Condition: Fair Referrals: NONE *PRIMARY CARE P,. [Primary Care Provider] - As per Instructions
[2017-03-19] MEDS ORDERED: QUEtiapine FUMARATE 25 MG TAB PO PRN (12:31)
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
[2017-03-19] MEDS ORDERED: PNEUMOCOCCAL 0.5ML VACCINE VIAL ONE (14:51)
[2017-03-19] MEDS ORDERED: PNEUMOCOCCAL 0.5ML VACCINE VIAL IM ONE (14:57)
--- NOTE | 2017-03-19 15:33 | BCON ---
[f rep st] BEHAVIORAL HEALTH CONSULTATION INTERNAL MEDICINE CONSULTATION DATE OF CONSULTATION: 03/19/2017 REFERRING PHYSICIAN: Latonia Black MD REASON FOR REFERRAL: Medical clearance for inpatient behavioral health stay. HISTORY OF PRESENT ILLNESS: The patient has had several recent emergency department visits, first for lightheadedness and fatigue and subsequently for psychiatric issues for which he was referred to outpatient care and finally again for psychiatric issues. He was evaluated by the mental health team, and he expressed several delusions and was admitted for further psychiatric care. He is currently without any acute complaints. PAST MEDICAL HISTORY: 1. Thrombocytopenia. 2. Episode of acute psychosis in 2014. PAST SURGICAL HISTORY: He has had 2 lumbar surgeries and a sacral rhizotomy for back pain associated with an injury due to weight lifting. MEDICATIONS: He was on no medications. He had been weaned off psychiatric medications approximately 3 months previously. SOCIAL HISTORY: He lives with roommates. He had been working at [employer] but recently lost his job. He is a smoker. FAMILY HISTORY: Noncontributory. REVIEW OF SYSTEMS: He denies pain, cough, dyspnea, nausea, vomiting, constipation, diarrhea, easy bruising, or easy bleeding, weight gain or weight loss, and night sweats, and otherwise, a 10-point review of systems is negative. PHYSICAL EXAMINATION: VITAL SIGNS: Blood pressure is 118/69, heart rate is 53 , respiratory rate is 12. Oxygen saturation is 97% on room air. Temperature is 36.6 degrees centigrade. His weight is 79.4 kg for a body mass index of 23.1. GENERAL: This is a well-nourished, well-developed man, appears his chronologic age, cooperative, and in no acute distress. HEENT: Extraocular movements are intact. Pupils are equal, round, and reactive to light. Mucous membranes are moist. There are no petechiae. Dentition is in good condition. There is no posterior oropharyngeal mucus. Airway is uncrowded. NECK: Supple. HEART: There is a regular rate and rhythm with no murmurs, rubs, or gallops. LUNGS: Clear to auscultation bilaterally. ABDOMEN: Soft, nontender , nondistended with normoactive bowel sounds. EXTREMITIES: There is no cyanosis, clubbing, or edema. NEUROLOGIC: Cranial nerves 2-12 are grossly intact. There is no focal weakness. Sensation is intact to light touch. LABORATORY STUDIES: Drawn in the emergency department. CBC showed a platelet count of 140 and, otherwise, was within normal limits. Platelet count has been in the 130-140 range upon chart review since November of this year. Serum chemistry revealed normal renal function and electrolytes. Toxicology screen in the serum was negative for ethyl alcohol and in the urine was non-negative for marijuana but negative for other substances of abuse. ASSESSMENT/RECOMMENDATIONS: 1. Mental health issues pending further evaluation and management per Psychiatry and the mental health team. 2. Thrombocytopenia, chronic, stable. No signs or symptoms of myelodysplastic syndrome and no purpura. He can follow up with his primary care provider after his discharge. 3. Tobacco dependence syndrome. He was advised to quit smoking. Thank you very much for including me in the care of this patient, and please do not hesitate to contact me or the hospitalist service should there be any need for further medical evaluation. I see no medical contraindications to the patient's continued stay on the inpatient behavioral health unit or to any psychiatric medications or procedures. /[id number]/MODL MTDD
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
--- NOTE | 2017-03-21 13:38 | SOAPPROG ---
SOAP Progress Note Assessment/Plan: Assessment: Plan: 03/20/17 14:00 DAY UPDATE/EXAM: Nursing reports pt as in control, isolative, c/w cares, sits alone but visible in community space/ on direct exam is calm, cooperative, conversant ; no overt psychosis but guarded initially and then more disclosing with lifeline history content; parents during pt's CH and he states MOC was "mostly absent and younger brother and I took care of our selves"; does report he bullied in middle school and mother had him see psychiatrist who prescribed antidepressants which pt took thru hs years and then dc'd on his own - no psychotherapy; he states hs years "were better" socially and that he did well with academics, went to complete 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 He describes taking pcb'd opiates for 4 years and states pain was poorly controlled and emotional distress in having to continue the pain meds thru t his time. He states he found a surgeon to do a rhizotomy procedure in 2014 and had immediate pain relief, got off all opiates in spring. He says the acute psychotic decompensation during which he barricaded himself in a neighbor's bathroom occured in May of 2016 and thus began a 2 year course of fluctuaing syndromal distress a/w dissociative episodes, PI, persecutory delusions, AH, increased anxiety around people. He lumps his mental distress under the label "memory problems". During the session pt did lose focus on several occasions momentarily, was aware of this happening, phenomenology appeared c/w brief dissociative episodes. Meds discussed and pt resistant to antipsychotic trial (Abilify) but cooperative with extending stay for further workup and treatment planning. ASSESSMENT/PLAN: partial recompensation to date; is actively dissociating as referenced; consider seizure d/o/ no change in management as d/w Nursing; pursue data expansion, consider Neurology consultation 03/21/17 13:33 DAY UPDATE/EXAM: Objective: Vital Signs Temp Pulse Resp BP Pulse Ox 36.7 C 68 18 127/64 H 97 03/21/17 03:39 03/21/17 03:39 03/21/17 03:39 03/21/17 03:39 03/21/17 03:39 ICD10 Worksheet Patient Problems: Problems Problem Status Onset Acute psychosis Acute
--- NOTE | 2017-03-21 15:02 | SOAPPROG ---
FUENTES Progress Note Assessment/Plan: Assessment: Plan: 03/20/17 14:00 DAY UPDATE/EXAM: Nursing reports pt as in control, isolative, c/w cares, sits alone but visible in community space/ on direct exam is calm, cooperative, conversant ; no overt psychosis but guarded initially and then more disclosing with lifeline history content; parents during pt's CH and he states MOC was "mostly absent and younger brother and I took care of our selves"; does report he bullied in middle school and mother had him see psychiatrist who prescribed antidepressants which pt took thru hs years and then dc'd on his own - no psychotherapy; he states hs years "were better" socially and that he did well with academics, went to complete undergraduate degree at [employer]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 He describes taking pcb'd opiates for 4 years and states pain was poorly controlled and emotional distress in having to continue the pain meds thru t his time. He states he found a surgeon to do a rhizotomy procedure in 2014 and had immediate pain relief, got off all opiates in spring. He says the acute psychotic decompensation during which he barricaded himself in a neighbor's bathroom occured in May of 2016 and thus began a 2 year course of fluctuaing syndromal distress a/w dissociative episodes, PI, persecutory delusions, AH, increased anxiety around people. He lumps his mental distress under the label "memory problems". During the session pt did lose focus on several occasions momentarily, was aware of this happening, phenomenology appeared c/w brief dissociative episodes. Meds discussed and pt resistant to antipsychotic trial (Abilify) but cooperative with extending stay for further workup and treatment planning. ASSESSMENT/PLAN: partial recompensation to date; is actively dissociating as referenced; consider seizure d/o/ no change in management as d/w Nursing; pursue data expansion, consider Neurology consultation 03/21/17 13:33 DAY UPDATE/EXAM: Nursing report pt appears less anxious, more visible in milieu, more present in the group program; on exam pt more disclosing about syndromal expeerience over the last 2 years a/w phenomenology including brief lapses of immediate memory, more extended dissociative states, and sporadic narendra incidents of paranoid ideation; data suggestive that this sx have been more frequent and anxiety-evoking over the 2 year period since their onset; pt then went on to exhibit PI/IOR A/W a/w his sense of being controlled or "trapped" as I clarified the need for him to change his status from M1 Hold to Voluntary; discussion needed extending for hism to trust me about what the Voluntary status meant as he clearly feard the it would mean he would be under control if he didn"t leave at the end of the 72hr hold. ' ASSESSMENT/PLAN: residual psychotic vulnerability and vulnerability to other syndromal states as referenced; continues resistance to medication trial/ change ti Voluntary status; DC can happen tomorrow afternoon altho pt understands from me that we can extend his stay until Thursday if he prefers. Objective: Vital Signs Temp Pulse Resp BP Pulse Ox 36.7 C 68 18 127/64 H 97 03/21/17 03:39 03/21/17 03:39 03/21/17 03:39 03/21/17 03:39 03/21/17 03:39 ICD10 Worksheet Patient Problems: Problems Problem Status Onset Acute psychosis Acute
[2017-03-22 06:07] VITALS: O2SAT 98
--- NOTE | 2017-03-22 06:46 | SOAPPROG ---
SOAP Progress Note Assessment/Plan: Assessment: Plan: 03/20/17 14:00 DAY UPDATE/EXAM: Nursing reports pt as in control, isolative, c/w cares, sits alone but visible in community space/ on direct exam is calm, cooperative, conversant ; no overt psychosis but guarded initially and then more disclosing with lifeline history content; parents during pt's CH and he states MOC was "mostly absent and younger brother and I took care of our selves"; does report he bullied in middle school and mother had him see psychiatrist who prescribed antidepressants which pt took thru hs years and then dc'd on his own - no psychotherapy; he states hs years "were better" socially and that he did well with academics, went 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 He describes taking pcb'd opiates for 4 years and states pain was poorly controlled and emotional distress in having to continue the pain meds thru t his time. He states he found a surgeon to do a rhizotomy procedure in 2014 and had immediate pain relief, got off all opiates in spring. He says the acute psychotic decompensation during which he barricaded himself in a neighbor's bathroom occured in May of 2016 and thus began a 2 year course of fluctuaing syndromal distress a/w dissociative episodes, PI, persecutory delusions, AH, increased anxiety around people. He lumps his mental distress under the label "memory problems". During the session pt did lose focus on several occasions momentarily, was aware of this happening, phenomenology appeared c/w brief dissociative episodes. Meds discussed and pt resistant to antipsychotic trial (Abilify) but cooperative with extending stay for further workup and treatment planning. ASSESSMENT/PLAN: partial recompensation to date; is actively dissociating as referenced; consider seizure d/o/ no change in management as d/w Nursing; pursue data expansion, consider Neurology consultation 03/21/17 13:33 DAY UPDATE/EXAM: Objective: Vital Signs Temp Pulse Resp BP Pulse Ox 36.4 C 66 14 135/63 H 98 03/22/17 06:06 03/22/17 06:06 03/22/17 06:06 03/22/17 06:06 03/22/17 06:06 ICD10 Worksheet Patient Problems: Problems Problem Status Onset Acute psychosis Acute
--- NOTE | 2017-03-22 06:49 | SOAPPROG ---
SOAP Progress Note Assessment/Plan: Assessment: Plan: 03/20/17 14:00 DAY UPDATE/EXAM: Nursing reports pt as in control, isolative, c/w cares, sits alone but visible in community space/ on direct exam is calm, cooperative, conversant ; no overt psychosis but guarded initially and then more disclosing with lifeline history content; parents during pt's CH and he states MOC was "mostly absent and younger brother and I took care of our selves"; does report he bullied in middle school and mother had him see psychiatrist who prescribed antidepressants which pt took thru hs years and then dc'd on his own - no psychotherapy; he states hs years "were better" socially and that he did well with academics, went to 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 He describes taking pcb'd opiates for 4 years and states pain was poorly controlled and emotional distress in having to continue the pain meds thru t his time. He states he found a surgeon to do a rhizotomy procedure in 2014 and had immediate pain relief, got off all opiates in spring. He says the acute psychotic decompensation during which he barricaded himself in a neighbor's bathroom occured in May of 2016 and thus began a 2 year course of fluctuaing syndromal distress a/w dissociative episodes, PI, persecutory delusions, AH, increased anxiety around people. He lumps his mental distress under the label "memory problems". During the session pt did lose focus on several occasions momentarily, was aware of this happening, phenomenology appeared c/w brief dissociative episodes. Meds discussed and pt resistant to antipsychotic trial (Abilify) but cooperative with extending stay for further workup and treatment planning. ASSESSMENT/PLAN: partial recompensation to date; is actively dissociating as referenced; consider seizure d/o/ no change in management as d/w Nursing; pursue data expansion, consider Neurology consultation 03/21/17 13:33 DAY UPDATE/EXAM: see progress note for 03/2103/22/17 DAY UPDATE/EXAM; Objective: Vital Signs Temp Pulse Resp BP Pulse Ox 36.4 C 66 14 135/63 H 98 03/22/17 06:06 03/22/17 06:06 03/22/17 06:06 03/22/17 06:06 03/22/17 06:06 ICD10 Worksheet Patient Problems: Problems Problem Status Onset Acute psychosis Acute
--- NOTE | 2017-03-22 11:06 | SOAPPROG ---
FUENTES Progress Note Assessment/Plan: Assessment: Plan: 03/20/17 14:00 DAY UPDATE/EXAM: Nursing reports pt as in control, isolative, c/w cares, sits alone but visible in community space/ on direct exam is calm, cooperative, conversant ; no overt psychosis but guarded initially and then more disclosing with lifeline history content; parents during pt's CH and he states MOC was "mostly absent and younger brother and I took care of our selves"; does report he bullied in middle school and mother had him see psychiatrist who prescribed antidepressants which pt took thru hs years and then dc'd on his own - no psychotherapy; he states hs years "were better" socially and that he did well with academics, 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 He describes taking pcb'd opiates for 4 years and states pain was poorly controlled and emotional distress in having to continue the pain meds thru t his time. He states he found a surgeon to do a rhizotomy procedure in 2014 and had immediate pain relief, got off all opiates in spring. He says the acute psychotic decompensation during which he barricaded himself in a neighbor's bathroom occured in May of 2016 and thus began a 2 year course of fluctuaing syndromal distress a/w dissociative episodes, PI, persecutory delusions, AH, increased anxiety around people. He lumps his mental distress under the label "memory problems". During the session pt did lose focus on several occasions momentarily, was aware of this happening, phenomenology appeared c/w brief dissociative episodes. Meds discussed and pt resistant to antipsychotic trial (Abilify) but cooperative with extending stay for further workup and treatment planning. ASSESSMENT/PLAN: partial recompensation to date; is actively dissociating as referenced; consider seizure d/o/ no change in management as d/w Nursing; pursue data expansion, consider Neurology consultation 03/21/17 13:33 DAY UPDATE/EXAM: see progress note for 03/2103/22/17 08:00 DAY UPDATE/EXAM; Nursing reports pt remains in control, selectively engaging milieu and group program; did sign in Voluntary status yesterday after session with and has not evidenced residual PI as occurred in the session yesterday/ on exam is calm, cooperative, conversast; no overt PI and did not evidence any attentional lapses, remains meds resistant but is allied with f/u with [facility] and Neurology consultation post DC; thinks course is improving one and would like to extend inpt course 24 hours and schedule DC for tomorrow which I endorse ASSESSMENT/PLAN: sustaining alliance for completing inpt rx and having f/u care as open case with [facility] post intake; is not demonstrably progressing in resolving syndromal distress other than tolerating it better by gratifying his dependent needs in being here; remains meds-resistant/ no change in meds or management plan; will omplete w/u and solidify alliance for follow-up referral for psychiatric outpt services and consultation with Neurology Objective: Vital Signs Temp Pulse Resp BP Pulse Ox 36.4 C 66 14 135/63 H 98 03/22/17 06:06 03/22/17 06:06 03/22/17 06:06 03/22/17 06:06 03/22/17 06:06 ICD10 Worksheet Patient Problems: Problems Problem Status Onset Acute psychosis Acute
[2017-03-23 06:28] VITALS: BP 135/83; PULSE 62; RESP 12; TEMP 98.1
--- NOTE | 2017-03-23 06:38 | SOAPPROG ---
FUENTES Progress Note Assessment/Plan: Assessment: Plan: 03/20/17 14:00 DAY UPDATE/EXAM: Nursing reports pt as in control, isolative, c/w cares, sits alone but visible in community space/ on direct exam is calm, cooperative, conversant ; no overt psychosis but guarded initially and then more disclosing with lifeline history content; parents during pt's CH and he states MOC was "mostly absent and younger brother and I took care of our selves"; does report he bullied in middle school and mother had him see psychiatrist who prescribed antidepressants which pt took thru hs years and then dc'd on his own - no psychotherapy; he states high school years "were better" socially and that he did well with academics, 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 He describes taking pcb'd opiates for 4 years and states pain was poorly controlled and emotional distress in having to continue the pain meds thru this time. He states he found a surgeon to do a rhizotomy procedure in 2014 and had immediate pain relief, got off all opiates in spring. He says the acute psychotic decompensation during which he barricaded himself in a neighbor' s bathroom occured in May of 2016 and thus began a 2 year course of fluctuating syndromal distress a/w dissociative episodes, PI, persecutory delusions, AH, increased anxiety around people. He lumps his mental distress under the label "memory problems". During the session pt did lose focus on several occasions momentarily, was aware of this happening, phenomenology appeared c/w brief dissociative episodes. Meds discussed and pt resistant to antipsychotic trial (Abilify) but cooperative with extending stay for further workup and treatment planning. ASSESSMENT/PLAN: partial recompensation to date; is actively dissociating as referenced; consider seizure d/o/ no change in management as d/w Nursing; pursue data expansion, consider Neurology consultation 03/21/17 13:33 DAY UPDATE/EXAM: see progress note for 03/2103/22/17 08:00 DAY UPDATE/EXAM; Nursing reports pt remains in control, selectively engaging milieu and group program; did sign in Voluntary status yesterday after session with and has not evidenced residual PI as occurred in the session yesterday/ on exam is calm, cooperative, conversant; no overt PI and did not evidence any attentional lapses, remains meds resistant but is allied with f/u with [facility] and Neurology consultation post DC; thinks course is improving one and would like to extend inpt course 24 hours and schedule DC for tomorrow which I endorse ASSESSMENT/PLAN: sustaining alliance for completing inpt rx and having f/u care as open case with [facility] post intake; is not demonstrably progressing in resolving syndromal distress other than tolerating it better by gratifying his dependent needs in being here; remains meds-resistant/ no change in meds or management plan; will complete w/u and solidify alliance for follow-up referral for psychiatric outpt services and consultation with Neurology 03/23/17 DAY UPDATE: Objective: Vital Signs Temp Pulse Resp BP Pulse Ox 36.7 C 62 12 135/83 H 98 03/23/17 06:00 03/23/17 06:00 03/23/17 06:00 03/23/17 06:00 03/23/17 06:00 ICD10 Worksheet Patient Problems: Problems Problem Status Onset Acute psychosis Acute
--- NOTE | 2017-03-23 13:15 | SOAPPROG ---
FUENTES Progress Note Assessment/Plan: Assessment: Plan: 03/20/17 14:00 DAY UPDATE/EXAM: Nursing reports pt as in control, isolative, c/w cares, sits alone but visible in community space/ on direct exam is calm, cooperative, conversant ; no overt psychosis but guarded initially and then more disclosing with lifeline history content; parents during pt's CH and he states MOC was "mostly absent and younger brother and I took care of our selves"; does report he bullied in middle school and mother had him see psychiatrist who prescribed antidepressants which pt took thru hs years and then dc'd on his own - no psychotherapy; he states high school years "were better" socially and that he did well with academics, 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 He describes taking pcb'd opiates for 4 years and states pain was poorly controlled and emotional distress in having to continue the pain meds thru this time. He states he found a surgeon to do a rhizotomy procedure in 2014 and had immediate pain relief, got off all opiates in spring. He says the acute psychotic decompensation during which he barricaded himself in a neighbor' s bathroom occured in May of 2016 and thus began a 2 year course of fluctuating syndromal distress a/w dissociative episodes, PI, persecutory delusions, AH, increased anxiety around people. He lumps his mental distress under the label "memory problems". During the session pt did lose focus on several occasions momentarily, was aware of this happening, phenomenology appeared c/w brief dissociative episodes. Meds discussed and pt resistant to antipsychotic trial (Abilify) but cooperative with extending stay for further workup and treatment planning. ASSESSMENT/PLAN: partial recompensation to date; is actively dissociating as referenced; consider seizure d/o/ no change in management as d/w Nursing; pursue data expansion, consider Neurology consultation 03/21/17 13:33 DAY UPDATE/EXAM: see progress note for 03/2103/22/17 08:00 DAY UPDATE/EXAM; Nursing reports pt remains in control, selectively engaging milieu and group program; did sign in Voluntary status yesterday after session with me and has not evidenced residual PI as occurred in the session yesterday/ on exam is calm, cooperative, conversant; no overt PI and did not evidence any attentional lapses, remains meds resistant but is allied with f/u with [facility] and Neurology consultation post DC; thinks course is improving one and would like to extend inpt course 24 hours and schedule DC for tomorrow which I endorse ASSESSMENT/PLAN: sustaining alliance for completing inpt rx and having f/u care as open case with [facility] post intake; is not demonstrably progressing in resolving syndromal distress other than tolerating it better by gratifying his dependent needs in being here; remains meds-resistant/ no change in meds or management plan; will complete w/u and solidify alliance for follow-up referral for psychiatric outpt services and consultation with Neurology 03/23/17 12:30 Dischare Note DAY ' UPDATE/EXAM: Nursing reports pt has remained in good control, c/w cares. and visible thru final 24 hours of stay, attending groups/ on exam pt is calm, cooperative, conversant; detailed review of course; also discussed pt's 2 visits to our ED in November for c/o headaches and dissociative sx; negative lab screens at the time included CT of head, CTA, lumber ;uncture, and brain MRI; thorough reivew of f/u referrals to [facility] for psyciatric services and Neurology for consultation including consideration of EEG; pt appears fully allied with f/u; also states that he feel better and the phenomonolgy generally is less prominent over his inpt course and expresses gratiude for being helped. He understands the dx remians unclear at DC. He is sufficiently stable fpr safe DC. ASSESSMENT/PLAN: significantly diminished syndromal distress; ready for DC today DC today to resume independent community life Seroquel 50 mg q4h prn - anxiety, PI, dissociation f/u intake with P later in week f/u Neurology consultation per pt's calling from designated list to schedule see Discharge Summary Objective: Vital Signs Temp Pulse Resp BP Pulse Ox 36.7 C 62 12 135/83 H 98 03/23/17 06:00 03/23/17 06:00 03/23/17 06:00 03/23/17 06:00 03/23/17 06:00 ICD10 Worksheet Patient Problems: Problems Problem Status Onset Acute psychosis Acute
[2017-03-23] MEDS ORDERED: QUEtiapine FUMARATE 25 MG TAB PO PRN (13:17)
== END 2017-03-23 13:50 | disposition home or self-care (01) | DRG 885 ==
LOC: BBEH 03-19 03:30
PROVIDERS: ADMIT Psychiatry & Neurology Psychiatry; ATTEND Psychiatry & Neurology Psychiatry
DX: F29 Unspecified psychosis not due to a substance or known physiological condition (principal); F22 Delusional disorders; F12.959 Cannabis use, unspecified with psychotic disorder, unspecified; F17.210 Nicotine dependence, cigarettes, uncomplicated; Z98.1 Arthrodesis status
CPT/HCPCS: 80305; G0009; G0480

== ENCOUNTER 2017-11-20 20:18 | Emergency (ER) | payer OTHER ==
[2017-11-20 20:24] VITALS: TEMP 98.6
--- NOTE | 2017-11-20 21:19 | EDPHY ---
H & P Time Seen by Provider: 11/20/17 20:57 HPI/ROS: CHIEF COMPLAINT: "Confusion for over a year " HISTORY OF PRESENT ILLNESS: The patient is a 27-year-old male who presents to the emergency department with multiple complaints over the past year. He states he has been having memory issues, "loss of identity ", confusion, mood changes. The patient states he has been seen in the emergency department over the past year for related symptoms. He states he has had a negative MRI and negative spinal tap. The patient read online about prion disease. No fevers or chills. No nausea vomiting. No focal weakness or numbness. No visual change. REVIEW OF SYSTEMS: My complete review of systems is negative except as mentioned in the HPI. Past Medical/Surgical History: Includes anxiety, depression, spinal fusion Smoking Status: Light smoker Physical Exam: 144/77, 100, 18, 97% on room air, 37.0 Constitutional: Initial Vital Signs Temperature (C) 37.0 C 11/20/17 20:21 Heart Rate 100 11/20/17 20:21 Respiratory Rate 18 11/20/17 20:21 Blood Pressure 143/77 H 11/20/17 20:21 O2 Sat (%) 97 11/20/17 20:21 O2 Delivery Mode Room Air Allergies/Adverse Reactions: No Known Allergies Allergy (Unverified 03/05/17 19:22) Home Medications: Medication Instructions Recorded NK [No Known Home Meds] 11/20/17 Medical Decision Making ED Course/Re-evaluation: In the emergency department I discussed possible etiologies with the patient. I answered all his questions. I reviewed the patient's previous record. The patient has a negative MRI and spinal tap last year in November. Based on the patient's normal exam and presentation he will follow up with Neurology. He is given contact information with Dr. Harvey. He is given warnings prior to leaving. He will return with worsening symptoms. Differential Diagnosis: My differential includes but is not limited to anxiety, depression, prion disease, Departure - Departure Disposition: Home, Routine, Self-Care Clinical Impression: Mood changes Condition: Good Instructions: Mood Disorders (ED) Additional Instructions: You need close follow-up with Urology. Return with worsening symptoms. Referrals: Orlando Harvey MD [Medical Doctor] - 5-7 days, call for appt.
[2017-11-20 21:41] VITALS: BP 140/85; PULSE 82; RESP 16; O2SAT 96
== END 2017-11-20 21:41 | disposition home or self-care (01) ==
DX: F34.9 Persistent mood [affective] disorder, unspecified (principal); F17.200 Nicotine dependence, unspecified, uncomplicated